=== PATIENT | male | born 1965 | race Caucasian/White ===

== ENCOUNTER 2021-05-04 13:10 | Emergency (ER) | payer OTHER ==
[2021-05-04 13:28] VITALS: BMI 29.7
[2021-05-04] MEDS ORDERED: ACETAMINOPHEN 325 MG TABLET (FP) PO ONE (14:48)
[2021-05-04] MEDS ORDERED: ACETAMINOPHEN 325 MG TABLET (FP) ONE (15:16)
[2021-05-04 15:19] LABS: BASO % 0.2 % (0-2.0); EOS % 0.1 % (0-4.5); HEMATOCRIT 43.8 % (35.4-49); HEMOGLOBIN 15.5 GM/dL (11.7-16.9); LYMPH % 15.1 % (8-40); MCH 30.7 pg (25.7-33.7); MCHC 35.3 g/dl (32.0-35.9); MEAN CELL VOLUME 86.8 fl (80-96); MEAN PLT VOLUME 8.8 fl (7.5-11.1); MONO % 6.7 % (3.8-10.2); NEUT % 77.9 % (42.8-82.8); PLATELET COUNT 112 10^3/uL (134-434); RBC 5.04 M/mm3 (4.00-5.60); RDW 13.5 % (11.9-15.9); VENOUS BASE EXCESS 1.8 mmol/L (-2-2); VENOUS O2 SATURATION 20.5 % (70-80); VENOUS PCO2 54.7 mmHg (38-52); VENOUS PH 7.341 (7.310-7.410); WHITE BLOOD COUNT 2.8 K/mm3 (4.0-10.0)
[2021-05-04 15:20] LABS: URINE APPEARANCE CLEAR; URINE BILIRUBIN NEGATIVE (NEGATIVE); URINE COLOR YELLOW; URINE GLUCOSE (UA) NEGATIVE (NEGATIVE); URINE KETONE TRACE (NEGATIVE); URINE LEUK ESTERASE NEGATIVE (NEGATIVE); URINE NITRITE NEGATIVE (NEGATIVE); URINE PROTEIN NEGATIVE (NEGATIVE); URINE UROBILINOGEN 0.2 mg/dL (0.2-1.0)
[2021-05-04 15:24] LABS: INR 1.14 (0.83-1.09)
[2021-05-04 15:26] LABS: ACTIVATED PTT 31.4 SECONDS (25.2-36.5)
[2021-05-04 15:27] LABS: CHLORIDE 102 mmol/L (98-107); SODIUM 136 mmol/L (136-145)
[2021-05-04 15:30] LABS: ALBUMIN 4.2 g/dl (3.4-5.0); ANION GAP 7 MMOL/L (8-16); BLOOD UREA NITROGEN 11.2 mg/dL (7-18); CALCIUM 7.9 mg/dL (8.5-10.1); CO2 27 mmol/L (21-32); GLUCOSE,RANDOM 85 mg/dL (74-106)
[2021-05-04 15:33] LABS: BILIRUBIN,DIRECT 0.1 mg/dL (0.0-0.2); CREATININE 1.3 mg/dL (0.55-1.3); SGOT/AST 29 U/L (15-37); SGPT/ALT 32 U/L (13-61)
[2021-05-04 15:35] LABS: BILIRUBIN,TOTAL 0.3 mg/dL (0.2-1); TOT PROT 7.9 g/dl (6.4-8.2)
[2021-05-04 15:36] LABS: ALK PHOS 75 U/L (45-117)
[2021-05-04 15:37] LABS: LDH 310 U/L (87-246)
[2021-05-04] MEDS ORDERED: CASIRIVIMAB (REGN10933) 600 MG, IMDEVIMAB (REGN10987) 600 MG in SODIUM CHLORIDE 100 ML IVPB ONE (15:45)
[2021-05-04 16:18] VITALS: TEMP 98.5
[2021-05-04 18:24] VITALS: BP 116/80; PULSE 85
== END 2021-05-04 19:10 | disposition home or self-care (01) ==
LOC: JER 13:10
PROC: 3E033GC Introduction of Other Therapeutic Substance into Peripheral Vein, Percutaneous Approach (ICD-10-PCS; principal; 2021-05-04)
DX: U07.1 COVID-19 (principal)
CPT/HCPCS: 36415; 71045-TC-FY; 80053; 81003; 82248; 82550; 82553; 82728; 82803; 83605; 83615; 84484; 85025; 85610; 85730; 86140; 87040; 87086; 93005; 93010; 99285-25; M0243; Q0243